=== PATIENT | male | born 1975 | race Caucasian/White ===

== ENCOUNTER 2020-03-02 18:46 | Outpatient (REF) | payer OTHER, SELFPAY ==
[2020-03-02 20:22] LABS: Anion Gap 8.3 mmol/L (3-11); BUN 16 mg/dL (7-18); CO2 28.7 mmol/L (21.0-32.0); Calcium 9.1 mg/dL (8.5-10.1); Calculated LDL 117 mg/dL (<100); Chloride 106 mmol/L (98-107); Cholesterol 179 mg/dL (<200); Glucose 78 mg/dL (74-106); HDL Cholesterol 53 mg/dL (40-60); Sodium 143 mmol/L (136-145); Triglyceride 46 mg/dL (<150)
== END 2020-03-02 19:06 ==
LOC: NCHCN 18:46
PROVIDERS: Visit Provider Physician Assistant
DX: Z00.00 Encounter for general adult medical examination without abnormal findings (principal); Z13.220 Encounter for screening for lipoid disorders; Z13.228 Encounter for screening for other metabolic disorders
CPT/HCPCS: 80048; 80061

== ENCOUNTER 2020-10-07 12:49 | Outpatient (REF) | payer OTHER, SELFPAY ==
[2020-10-07 10:27] LABS: Sperm(Post-Vasectomy) Absent
== END 2020-10-07 13:09 ==
LOC: LBN 12:49
PROVIDERS: Visit Provider Urology
DX: Z30.8 Encounter for other contraceptive management (principal)
CPT/HCPCS: 89321

== ENCOUNTER 2023-01-15 08:48 | Outpatient (REF) | payer OTHER, SELFPAY ==
[2023-01-15 23:00] LABS: Campylobacter PCR Negative (Negative); Salmonella PCR Negative (Negative); Shiga Toxin PCR Negative (Negative); Shigella/Enteroinvasive Ecoli Negative (Negative)
[2023-01-18 13:14] LABS: Calprotectin <50.0 mcg/g
== END 2023-01-15 08:49 | disposition home or self-care (01) ==
LOC: NCHCN 08:48
PROVIDERS: Visit Provider Physician Assistant
DX: R19.7 Diarrhea, unspecified (principal)
CPT/HCPCS: 87329; 87505; 83993